=== PATIENT | male | born 1975 | race Hispanic/Latino ===

== ENCOUNTER 2025-09-12 17:59 | Emergency (ER) | payer SELFPAY ==
[~2025-09-12] VITALS: Ht 170.2 cm; Wt 81.6 kg
--- NOTE | 2025-09-12 18:08 | ERN ---
ED Note History of Present Illness Stated Complaint: CHEST PAIN Chief Complaint: Chest Pain Time Seen by MD: 18:03 Dictation: PATIENT IS A 50-YEAR-OLD MALE COMING IN WITH INTERMITTENT LEFT CHEST PAIN THAT DOES NOT RADIATE OFF AND ON FOR THE LAST THREE DAYS ON-CALL. NO NAUSEA VOMITING NO SOB. HE IS ALSO CONCERNED ABOUT HIS BLOOD PRESSURE. STATES HE HAS A DIABETIC, THIS LAST BLOOD PRESSURE CHECK THIS MORNING WAS 152. HE STATES HE WORKS FOR [employer], DID NOT GO SEE HIS DOCTOR OVER THE LAST THREE DAYS WITH THE CHEST PAIN IN HIS CONCERNED 1ST BLOOD PRESSURE. Allergies: Coded Allergies: No Known Allergies (Unverified Allergy, Unknown, 09/12/25) Past Medical History Past Medical History: Diabetes-Type II Surgical History: None RN Note Reviewed/Agreed w/PFSH: Yes Review of System Dictation CONSTITUTIONAL: NEGATIVE EXCEPT FOR HPI HEAD/FACE: NEGATIVE EXCEPT FOR HPI EENT: NEGATIVE EXCEPT FOR HPI RESPIRATORY: NEGATIVE EXCEPT FOR HPI CHEST PAIN GASTROINTESTINAL/ABDOMINAL: NEGATIVE EXCEPT FOR HPI GENITOURINARY: NEGATIVE EXCEPT FOR HPI MUSCULOSKELETAL: NEGATIVE EXCEPT FOR HPI INTEGUMENTARY: NEGATIVE EXCEPT FOR HPI NEUROLOGICAL/PSYCH: NEGATIVE EXCEPT FOR HPI HEMATOLOGIC/LYMPHATIC: NEGATIVE EXCEPT FOR HPI ALL SYSTEMS NEGATIVE, EXCEPT NOTED ABOVE. 13 POINT REVIEW OF SYSTEMS ASSESSED AND ALL NEGATIVE EXCEPT FOR ABOVE. Initial Vital Sign VS Vital Signs Date Time Temp Pulse Resp B/P (MAP) Pulse Ox O2 Delivery O2 Flow Rate FiO2 09/12/25 18:02 98.2 70 20 148/103 99 Room Air 09/12/25 18:10 0 21 Physical Exam Dictation VITAL SIGNS REVIEWED GENERAL APPEARANCE: ALERT, ORIENTED X 3, NO ACUTE DISTRESS, WELL DEVELOPED, NOURISHED. HEAD AND FACE: NON-TRAUMATIC. EYES: PERRL, PINK CONJUNCTIVAS, EYELID NO TRAUMA, ANTERIOR CHAMBER WITH ARCUS SENILIS. EARS: PINNAS INTACT AND NO SIGNS OF TRAUMA OR ERYTHEMA EAR CANALS CLEAR AND NO DISCHARGE TM NO ERYTHEMA NOSE: NO DISCHARGE, NO BLEEDING. OROPHARYNX: MOUTH NORMAL, TONGUE PINK, PHARYNX CLEAR,NO ERYTHEMA, TONSILS NO EXUDATES, NO ABSCESSES NOTED, MUCOUS MEMBRANE MOIST NECK: SUPPLE, NON-TENDER, NO THYROMEGALY, NO MASSES, NO JVD, NO BRUITS BREAST:DEFERRED CHEST:NO TENDERNESS, NO CREPITUS, NO PARADOXICAL MOVEMENT, NO RETRACTIONS LUNGS:CLEAR, WELL-VENTILATED, SYMMETRIC, NO RALES, NO WHEEZING, NO RHONCHI, NO STRIDOR, GOOD BREATH SOUNDS BILATERALLY HEART: REGULAR RATE, REGULAR RHYTHM, NO MURMUR, NO GALLOPS VASCULAR: NO PERIPHERAL EDEMA, ABDOMEN: SOFT, POSITIVE BOWEL SOUNDS, NONDISTENDED, NO GUARDING, NONTENDER, NO REBOUND, NO MASSES NO HEPATOMEGALY, NO SPLENOMEGALY, NO HUTCHINSON'S SIGN, NO HERNIAS. RECTAL: DEFERRED GENITAL: DEFERRED NEUROLOGICAL: NORMAL SPEECH, MOTOR FUNCTION INTACT, SENSORY FUNCTION INTACT MUSCULOSKELETAL: NECK NONTENDER, FULL RANGE OF MOTION, BACK NONTENDER, FULL RANGE OF MOTION, EXTREMITIES: NONTENDER, FULL RANGE OF MOTION SKIN: COLOR PINK, DRY, NO TURGOR, NO RASH, NO LACERATIONS, NO ABRASIONS, NO CONTUSIONS. LYMPHATIC: DEFERRED Results (Laboratory/Radiology) Laboratory/Radiology Laboratory Tests Test 09/12/25 18:14 09/12/25 18:30 White Blood Count 6.7 K/uL (4.8-10.8) Red Blood Count 4.87 MIL/uL (4.50-6.20) Hemoglobin 14.3 g/dL (14.0-18.0) Hematocrit 41.4 % (42-54) L Mean Corpuscular Volume 85.0 fL (79-99) Mean Corpuscular Hemoglobin 29.4 pg (27.0-33.0) Mean Corpuscular Hemoglobin Concent 34.5 g/dL (32.0-36.0) Red Cell Distribution Width 12.5 % (11.0-15.5) Platelet Count 296 K/uL (130-400) Mean Platelet Volume 8.5 fL (7.5-10.5) Immature Granulocyte % (Auto) 0.2 % (0-1) Neutrophils (%) (Auto) 50.1 % (40.0-77.0) Lymphocytes (%) (Auto) 38.9 % (21.0-51.0) Monocytes (%) (Auto) 8.4 % (3.0-13.0) Eosinophils (%) (Auto) 2.1 % (0.0-8.0) Basophils (%) (Auto) 0.3 % (0.0-5.0) Neutrophils # (Auto) 3.3 K/uL (1.8-7.7) Lymphocytes # (Auto) 2.6 K/uL (1.0-4.8) Monocytes # (Auto) 0.6 K/uL (0.1-1.0) Eosinophils # (Auto) 0.14 K/uL (0.00-0.70) Basophils # (Auto) 0.02 K/uL (0.00-0.20) Absolute Immature Granulocyte (auto 0.01 K/uL (0-1) Nucleated Red Blood Cells 0.0 % (0.0-0.19) Sodium Level 132 mmol/L (136-145) L Potassium Level 3.3 mmol/L (3.5-5.1) L Chloride Level 95 mmol/L (101-111) L Carbon Dioxide Level 30 mmol/L (21-32) Blood Urea Nitrogen 11 mg/dL (7-18) Creatinine 0.7 mg/dL (0.5-1.3) Glomerular Filtration Rate Calc 114 mL/min (>90) Random Glucose 128 mg/dL (70-105) H Total Calcium 8.9 mg/dL (8.5-10.1) Magnesium Level 2.00 mg/dL (1.80-2.40) Troponin I High Sensitivity 6 ng/L (4-75) Urine Opiates Screen NEGATIVE (NEGATIVE) Urine Barbiturates Screen NEGATIVE (NEGATIVE) Urine Phencyclidine Screen NEGATIVE (NEGATIVE) Urine Amphetamines Screen NEGATIVE (NEGATIVE) Urine Benzodiazepines Screen POSITIVE (NEGATIVE) H Urine Cocaine Screen NEGATIVE (NEGATIVE) Urine Marijuana (THC) Screen NEGATIVE (NEGATIVE) Labs Reviewed?: Yes EKG: (+) NSR EKG Comment: 1807/EKG normal sinus rhythm/heart rate 64/axis normal/no ectopy ED Course ED Course Orders Procedure Category Date Status Time Cbc With Differential LAB 09/12/25 Complete 18:05 Chest 1vw RAD 09/12/25 Taken 18:05 12 Lead Ekg Tracing- EKG 09/12/25 Complete Technical 18:05 Magnesium LAB 09/12/25 Complete 18:05 Troponin I High LAB 09/12/25 Complete Sensitivity 18:05 Aspirin 325mg Tab PHA 09/12/25 Complete (Aspirin 325mg Tab) 18:30 Basic Metabolic Panel LAB 09/12/25 Complete 18:05 Nitroglycerin 0.4mg PHA 09/12/25 In Process Sl Tab (Nitrostat) 18:30 Drug Screen Urine LAB 09/12/25 Complete 18:24 Potassium Bicarb/Cit PHA 09/12/25 Complete Ac 25meq (K-Lyte Ta 19:00 Current Medications Medications (Trade) Dose Ordered Sig/Dinorah Route PRN Reason Start Time Stop Time Status Last Admin Dose Admin Aspirin (Aspirin 325mg Tab) 325 mg ONCE ONCE PO 09/12/25 18:30 09/12/25 18:31 DC 09/12/25 18:18 Nitroglycerin (Nitrostat) 0.4 mg AD PRN SL CHEST PAIN 09/12/25 18:30 10/12/25 18:29 09/12/25 18:18 Potassium Bicarbonate (K-Lyte Tablet Eff 25 Meq Tablet.eff) 50 meq ONCE ONCE PO 09/12/25 19:00 09/12/25 19:01 DC 09/12/25 19:21 Vital Signs Date Time Temp Pulse Resp B/P (MAP) Pulse Ox O2 Delivery O2 Flow Rate FiO2 09/12/25 18:10 98.2 70 20 148/103 99 Room Air* 0 21 09/12/25 18:02 98.2 70 20 148/103 99 Room Air 1950/patient hypertensive with blood pressures systolic 140-153. I we will send patient home with a enalapril Mg daily. In addition potassium was 3.2 and was replaced Patient was strongly advised to see his primary care doctor Monday for follow up and management. All questions and He does state he drinks up to four cups of coffee a day two in the morning and two in the afternoon. I advised him to switch over to decaffeinated coffee. HEART Score Response (Comments) Value History: Low suspicion (0) 0 Age: 45-65yrs (+1) 1 Risk Factors: 1-2 risk factors (+1) 1 Initial Troponin: Normal limit (0) 0 Total 2 Medical Decision Making MDM MDM: Differential diagnosis: ACS/AMI/arrhythmias/electrolyte imbalance/dehyd ration/pneumonia/bronchitis/drug abuse Rationale: Tests considered and ordered secondary to shared decision making include: EKG/labs/radiology Previous outside records reviewed: Old ER visits. Risk of complication and/or morbidity or mortality of patient management: None Medications-Per medication reconciliation Need for hospitalization: Patient does not meet criteria for hospitalization. None Need for emergency major/minor surgery: No There are no social concerns with this patient. Prescription drug management enalapril Prescriptions will include symptomatic care Patient's prior external medical records from other ER visits were reviewed by me as indicated. Prior testing and results from previous visits were reviewed. Prior tests were taken into account with medical decision making and resource utilization, independent historian/historians were used to obtain complete medical history. I independently interpreted the test that were performed, results were reviewed by me and considered findings on radiology if ordered. Medical management and examination interpretation discussions were had by me with other qualified healthcare professionals as indicated for the patient's care. DX & DISP Disposition: Discharge Departure Impression: Primary Impression: Heart palpitations Additional Impressions: Hyponatremia, Hypokalemia, Hyperglycemia, Hypertension Condition: Stable Scripts Potassium Bicarbonate/Cit AC (Effer-K 25 Meq Tablet Eff) 25 Meq Tablet.eff 25 MEQ PO DAILY for 5 Days, #5 TAB.EFF Prov: PASTORA HERNANDEZ 09/12/25 Enalapril Maleate (Enalapril Maleate) 5 Mg Tablet 1 TAB PO DAILY for 30 Days, #30 TAB 0 Refills Prov: PASTORA HERNANDEZ 09/12/25 Additional Instructions: Follow-up with primary care provider in 1 to 2 days. Take medications as directed here in the emergency room. Okay to continue home medications unless otherwise discussed during your visit in the emergency room today. Return to your nearest emergency room if symptoms worsen or if there is no improvement. Call 911 if you need immediate assistance. Take Tylenol or Motrin [id number] nter as needed and if no contraindications are present. Increase oral hydration. A wound culture or urine culture was ordered here in the emergency room department please follow-up with primary care provider and advise them to get repeat ports from our facility. If you had any Nicanor wrap/splints that were applied here, please do not remove them until you see your primary care or [facility]. Take enalapril daily as directed for your blood pressure. Take potassium daily for the next five days as directed for your potassium replacement. See your primary care doctor on Monday for follow up and management Be sure to tell your physician all the medications you were taken including your [id number] supplements No work until cleared by your doctor Monday Time of Disposition: 19:55 I have reviewed the case, and I agree with, Diagnosis and Plan PASTORA HERNANDEZ Sep 12, 2025 18:08
--- NOTE | 2025-09-12 18:17 | EKG ---
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
[2025-09-12] MEDS: ASPIRIN 325MG TAB PO ONE (18:18)
[2025-09-12] MEDS: NITROGLYCERIN 0.4 MG SL TAB SL PRN (18:18)
[2025-09-12 18:20] LABS: IMMATURE GRANULOCYTE ABSOLUTE 0.01 K/uL (0-1); NUCLEATED RED BLOOD CELLS 0.0 % (0.0-0.19); PLATELET COUNT (AUTO) 296 K/uL (130-400); RED BLOOD CELL COUNT(AUTO) 4.87 MIL/uL (4.50-6.20); RED CELL DISTRIBUTION WIDTH 12.5 % (11.0-15.5); WHITE BLOOD COUNT (AUTO) 6.7 K/uL (4.8-10.8)
[2025-09-12 18:31] LABS: CREATININE 0.7 mg/dL (0.5-1.3); GLOMERULAR FILTR. RATE CALC 114.0 mL/min (>90); GLUCOSE,RANDOM 128.0 mg/dL (70-105); SODIUM SERUM 132.0 mmol/L (136-145); UREA NITROGEN, BLOOD 11.0 mg/dL (7-18)
[2025-09-12 18:52] LABS: AMPHET/METH SCREEN,URINE NEGATIVE (NEGATIVE); BARBITURATE SCREEN, URINE NEGATIVE (NEGATIVE); CANNABINOID SCREEN,URINE NEGATIVE (NEGATIVE); COCAINE SCREEN,URINE NEGATIVE (NEGATIVE)
[2025-09-12] MEDS ORDERED: POTA25TA35 PO (19:56)
[2025-09-12] MEDS ORDERED: ENAL-87 PO (19:56)
--- NOTE | 2025-09-12 19:57 | HMCIMG ---
EXAM: CR Chest, 1 View. CLINICAL HISTORY: CHEST PAIN COMPARISON: None provided. FINDINGS: LUNGS: There is no mass, infiltrate, or acute pulmonary abnormality. PLEURAL SPACES: No pleural effusion or pneumothorax. MEDIASTINUM: The cardiomediastinal silhouette is within normal limits. BONES: No aggressive appearing osseous lesion seen. IMPRESSION: No acute cardiopulmonary pathology is evident. /[place]
[2025-09-12 19:59] VITALS: BP 153/80; PULSE 65; RESP 18; TEMP 98.6; O2SAT 98
== END 2025-09-12 20:07 | disposition home or self-care (01) ==
LOC: EDH 17:59
DX: R00.2 Palpitations (principal); E87.1 Hypo-osmolality and hyponatremia; E11.65 Type 2 diabetes mellitus with hyperglycemia; I10 Essential (primary) hypertension; E87.6 Hypokalemia; R07.89 Other chest pain
CPT/HCPCS: 36415; 71045; 80048; 80305; 83735; 84484; 85025; 93005; 99285